=== PATIENT | male | born 1960 | race Caucasian/White ===

== ENCOUNTER 2018-08-21 15:27 | Emergency (ER) | payer OTHER ==
[~2018-08-21] VITALS: Ht 170.2 cm; Wt 105.0 kg
[2018-08-21 15:38] VITALS: BP 107/74
== END 2018-08-21 15:43 | disposition home or self-care (01) ==
LOC: ED 15:37
DX: K02.9 Dental caries, unspecified (principal); Z90.49 Acquired absence of other specified parts of digestive tract
CPT/HCPCS: 99283